=== PATIENT | female | born 1955 | race African-American/Black ===

== ENCOUNTER 2016-04-26 15:19 | Emergency (ER) | payer OTHER ==
[~2016-04-26] VITALS: Ht 160 cm; Wt 77.0 kg
[~2016-04-26 15:19] MED LIST: ALPR0.5T99 PO; AMBI5TAB PO; EMPA1TAB PO; GABA300 PO; GLUCTAB PO; LISI-357 PO; LORTA5 PO; METO25 PO; NOVOLOGP2 SQ; PROT40TA PO; ZITH250T PO
[2016-04-26 15:21] VITALS: BP 191/86; PULSE 70; RESP 12; TEMP 97.9; O2SAT 97
--- NOTE | 2016-04-26 17:21 | PD ---
HPI Chief Complaint: GI Complaint Time Seen by Provider: 17:20 Travel History International Travel<30 days: No Contact w/Intl Traveler<30days: No Traveled to known affect area: No History of Present Illness HPI 60-year-old female with history of CAD with history of [place], diabetes, hypertension, COPD,, fibromyalgia, presents to emergency department for evaluation of epigastric pain. This has been ongoing for the last 5 days and radiates to her back. Denies any fever or chills. Has had a decreased appetite. Has been nauseous without vomiting. No other symptoms reported. PFSH Past Medical History Arthritis: Yes Asthma: No Blood Disorders: No Anxiety: Yes Heart Rhythm Problems: No Cancer: No Cardiac Catheterization: No Cardiovascular Problems: Yes High Cholesterol: Yes Chemotherapy: No Chest Pain: Yes Congestive Heart Failure: No Cirrhosis: Yes (PT DENIES) COPD: No Cerebrovascular Accident: Yes (TIA) Diabetes: Yes Diminished Hearing: No Endocrine: No Fibromyalgia: Yes GERD: Yes Glaucoma: No Genitourinary: No Headaches: Yes Hepatitis: No Hiatal Hernia: No Hypertension: Yes Immune Disorder: No Musculoskeletal: Yes (CHRONIC LOWER BACK PAIN) Neurologic: Yes (NEUROPATHY) Psychiatric: No Respiratory: Yes Immunizations Current: Yes Myocardial Infarction: No Radiation Therapy: No Sleep Apnea: No Thyroid Disease: No Menopausal: Yes : 3 Para: 3 Miscarriage: 0 : 0 Past Surgical History Abdominal Surgery: Yes (Hernia Repair) AICD: No Cardiac Surgery: No Coronary Artery Bypass Graft: No Ear Surgery: No Endocrine Surgery: Yes (TONSILECTOMY) Eye Surgery: No Genitourinary Surgery: No Gynecologic Surgery: Yes (RECTOCELE) Hysterectomy: Yes Joint Replacement: No Neurologic Surgery: No Oral Surgery: No Pacemaker: No Thoracic Surgery: No Tonsillectomy: Yes Other Surgery: Yes (CARPEL TUNNEL RELEASE RIGHT HAND, RECTOCELE REPAIR) Social History Alcohol Use: Yes (OCCASSIONAL) Tobacco Use: No (quit 30 yrs ago) Substance Use: No Allergies-Medications (Allergen,Severity, Reaction): Coded Allergies: No Known Allergies (Verified , 04/26/16) Reported Meds & Prescriptions Reported Meds & Active Scripts Active Zofran (Ondansetron HCl) 4 Mg Tab 4 Mg PO Q6HR PRN Sucralfate 1 Gm Tab 1 Gm PO QID PRN on empty stomach one hour before meal Review of Systems Except as stated in HPI: all other systems reviewed are Neg Physical Exam Narrative GENERAL: Well-nourished female patient, he was oriented no acute distress SKIN: Warm and dry. HEAD: Atraumatic. Normocephalic. EYES: Pupils equal and round. No scleral icterus. No injection or drainage. ENT: No nasal bleeding or discharge. Mucous membranes pink and moist. NECK: Trachea midline. No JVD. CARDIOVASCULAR: Regular rate and rhythm. No murmur appreciated. RESPIRATORY: No accessory muscle use. Clear to auscultation. Breath sounds equal bilaterally. GASTROINTESTINAL: Abdomen soft, epigastric tenderness to palpation. No guarding or rebound tenderness. Hepatic and splenic margins not palpable. MUSCULOSKELETAL: No obvious deformities. No clubbing. No cyanosis. No edema. NEUROLOGICAL: Awake and alert. No obvious cranial nerve deficits. Motor grossly within normal limits. Normal speech. PSYCHIATRIC: Appropriate mood and affect; insight and judgment normal. Data Data Last Documented VS Vital Signs Date Time Temp Pulse Resp B/P Pulse Ox O2 Delivery O2 Flow Rate FiO2 04/26/16 20:40 98.5 78 16 149/65 97 04/26/16 19:16 Room Air Orders Complete Blood Count With Diff (04/26/16 17:19) Comprehensive Metabolic Panel (04/26/16 17:19) Lipase (04/26/16 17:19) Prothrombin Time / Inr (Pt) (04/26/16 17:19) Act Partial Throm Time (Ptt) (04/26/16 17:19) Urinalysis - C+S If Indicated (04/26/16 17:19) Type And Screen (04/26/16 17:19) Troponin I (04/26/16 17:19) Ckmb (Isoenzyme) Profile (04/26/16 17:19) Electrocardiogram (04/26/16 18:44) D-Dimer (04/26/16 18:44) Chest, Single Ap (04/26/16 18:44) Abdomen, Flat & Upright (04/26/16 ) Iv Access Insert/Monitor (04/26/16 18:44) Ecg Monitoring (04/26/16 18:44) Ondansetron Inj (Zofran Inj) (04/26/16 18:45) Pantoprazole Inj (Protonix Inj) (04/26/16 18:45) Sodium Chlor 0.9% 1000 Ml Inj (Ns 1000 M (04/26/16 18:44) Famotidine Inj (Pepcid Inj) (04/26/16 18:45) Ct Abd/Pel W Iv Contrast(Rout) (04/26/16 19:24) Potassium Chloride (Kcl) (04/26/16 19:45) Iohexol 350 Inj (Omnipaque 350 Inj) (04/26/16 20:02) Labs Laboratory Tests Test 04/26/16 04/26/16 17:35 18:00 Urine Color LIGHT-YELLOW Urine Turbidity CLEAR Urine pH 5.[address] [place] 1.045 Urine Protein NEG mg/dL Urine Glucose (UA) 1000 mg/dL Urine Ketones NEG mg/dL Urine Occult Blood NEG Urine Nitrite NEG Urine Bilirubin NEG Urine Urobilinogen LESS THAN 2.0 MG/DL Urine Leukocyte Esterase NEG Urine WBC LESS THAN 1 /hpf Urine Squamous Epithelial 1 /hpf Cells Urine Hyaline Casts 1 /lpf Urine Mucus FEW /lpf Microscopic Urinalysis Comment CULT NOT INDICATED White Blood Count 4.7 TH/MM3 Red Blood Count 5.19 MIL/MM3 Hemoglobin 15.2 GM/DL Hematocrit 45.8 % Mean Corpuscular Volume 88.3 FL Mean Corpuscular Hemoglobin 29.2 PG Mean Corpuscular Hemoglobin 33.1 % Concent Red Cell Distribution Width 12.8 % Platelet Count 214 TH/MM3 Mean Platelet Volume 9.3 FL Neutrophils (%) (Auto) 35.2 % Lymphocytes (%) (Auto) 51.3 % Monocytes (%) (Auto) 9.8 % Eosinophils (%) (Auto) 2.8 % Basophils (%) (Auto) 0.9 % Neutrophils # (Auto) 1.6 TH/MM3 Lymphocytes # (Auto) 2.4 TH/MM3 Monocytes # (Auto) 0.5 TH/MM3 Eosinophils # (Auto) 0.1 TH/MM3 Basophils # (Auto) 0.0 TH/MM3 CBC Comment DIFF FINAL Differential Comment Prothrombin Time 10.0 SEC Prothromb Time International 0.9 RATIO Ratio Activated Partial 24.5 SEC Thromboplast Time D-Dimer Quantitative (PE/DVT) 0.25 MG/L FEU Sodium Level 138 MEQ/L Potassium Level 3.4 MEQ/L Chloride Level 102 MEQ/L Carbon Dioxide Level 28.1 MEQ/L Anion Gap 8 MEQ/L Blood Urea Nitrogen 12 MG/DL Creatinine 0.87 MG/DL Estimat Glomerular Filtration 81 ML/MIN Rate Random Glucose 185 MG/DL Calcium Level 8.8 MG/DL Total Bilirubin 0.4 MG/DL Aspartate Amino Transf 19 U/L (AST/SGOT) Alanine Aminotransferase 44 U/L (ALT/SGPT) Alkaline Phosphatase 160 U/L Total Creatine Kinase 76 U/L Troponin I LESS THAN 0.02 NG/ML Total Protein 7.9 GM/DL Albumin 3.7 GM/DL Lipase 164 U/L Blood Type B POSITIVE Antibody Screen NEGATIVE Blood Bank Comment MDM Medical Decision Making Medical Screen Exam Complete: Yes Emergency Medical Condition: Yes Medical Record Reviewed: Yes Differential Diagnosis Gastritis versus gastric antritis versus GERD versus esophagitis versus pancreatitis Narrative Course 60 year-old female presents to emergency department for evaluation of epigastric pain. Workup is initiated in triage. Once a medical bed becomes available, patient will be transferred. Scripts Ondansetron (Zofran)4 Mg Tab4 Mg PO Q6HR PRN (NAUSEA OR VOMITING) #12 TAB Ref 0 Prov:Vijay Aiken MD 04/26/16 Sucralfate 1 Gm Tab1 Gm PO QID PRN (ABDOMINAL CRAMPING) #20 TAB Ref 0 on empty stomach one hour before meal Prov:Vijay Aiken MD 04/26/16 Condition: Stable Danitza Hall Apr 26, 2016 17:20
[2016-04-26 18:24] LABS: AUTOMATED NEUTROPHIL # 1.6 TH/MM3 (1.8-7.7); BASOPHIL % 0.9 % (0.0-2.0); EOSINOPHIL # 0.1 TH/MM3 (0-0.4); EOSINOPHIL % 2.8 % (0.0-4.0); HEMATOCRIT 45.8 % (35.0-46.0); HEMO FLAGS DIFF FINAL; LYMPH % 51.3 % (9.0-44.0); LYMPHOCYTE # 2.4 TH/MM3 (1.0-4.8); MEAN CELL VOLUME 88.3 FL (80.0-100.0); MEAN CORPUSCULAR HEMOGLOBIN 29.2 PG (27.0-34.0); MEAN CORPUSCULAR HGB CONC 33.1 % (32.0-36.0); MONO % 9.8 % (0.0-8.0); NEUT % 35.2 % (16.0-70.0); PLATELET COUNT 214 TH/MM3 (150-450); RED BLOOD COUNT 5.19 MIL/MM3 (4.00-5.30); RED CELL DISTRIBUTION WIDTH 12.8 % (11.6-17.2); WHITE BLOOD COUNT 4.7 TH/MM3 (4.0-11.0)
[2016-04-26 18:33] LABS: APTT (PATIENT) 24.5 SEC (24.3-30.1); INTERNATIONAL NORMALIZED RATIO 0.9 RATIO
[2016-04-26 18:34] LABS: BLOOD, URINE NEG (NEG); COMMENT (UR) CULT NOT INDICATED; CULTURE IF INDICATED CULT NOT INDICATED; GLUCOSE,URINE 1000 mg/dL (NEG); HYALINE CAST, URINE 1 /lpf (RARE); KETONE, URINE NEG (NEG); MUCUS URINE FEW /lpf (OCC); NITRITE,URINE NEG (NEG); SQUAMOUS EPITHELIAL CELL URINE 1 /hpf (0-5); URINE COLOR LIGHT-YELLOW (YELLW/STRAW)
[2016-04-26] MEDS ORDERED: SODIUM CHLOR 0.9% 1000 ML INJ 1,000 ML IV SCH (18:44)
[2016-04-26] MEDS ORDERED: FAMOTIDINE 20 MG/2 ML VIAL IV PUSH ONE (18:45)
[2016-04-26] MEDS ORDERED: ONDANSETRON HCL 4 MG/2 ML VIAL IVP ONE (18:45)
[2016-04-26] MEDS ORDERED: PANTOPRAZOLE SODIUM 40 MG VIAL IVP ONE (18:45)
[2016-04-26 18:46] LABS: ANION GAP 8 MEQ/L (5-15); AST (GOT) 19 U/L (15-37); BICARBONATE 28.1 MEQ/L (21.0-32.0); BLOOD UREA NITROGEN 12 MG/DL (7-18); CHLORIDE 102 MEQ/L (98-107); GLOMERULAR FILTRATION RATE 81 ML/MIN (>89); POTASSIUM 3.4 MEQ/L (3.5-5.1); SODIUM (NA) 138 MEQ/L (136-145)
--- NOTE | 2016-04-26 18:47 | PD ---
HPI Chief Complaint: GI Complaint Time Seen by Provider: 18:47 Travel History International Travel<30 days: No Contact w/Intl Traveler<30days: No Traveled to known affect area: No History of Present Illness HPI Patient is a 60-year-old female with a history of insulin-dependent diabetes with neuropathy, GERD, TIA, fibromyalgia with chief complaint of epigastric pain. Present for the last 5 days. It is sharp and radiates to her back. She reports nausea without vomiting. She endorses reduced appetite. She was using Pepto-Bismol which did not help and begin developing dark stools the next day. She has had mostly normal stools with occasional soft stool, no kari diarrhea. No hematochezia. She denies any distention. She has GERD and is compliant with her medications but states she is also been having heartburn and some midsternal chest tightness and burning. This is been fairly constant for the last 5 days as well. She states it gives her shortness of breath. She states she was somewhat dizzy for a few brief seconds the last few days but denies syncope. She denies dysuria but states she has a "overactive bladder "and is on medications for this from her provider but has to wear a diaper frequently regardless. She denies history of DVT or PE and no recent surgeries or long distance travel however does have some right calf pain last few days as well. Denies swelling or injury. Documented of note she had EGD and possibly approximately one year ago with a GI specialist, does not remember their name. PCP told her to come here due to her symptoms, Dr. August. [facility] Past Medical History Arthritis: Yes Asthma: No Blood Disorders: No Anxiety: Yes Heart Rhythm Problems: No Cancer: No Cardiac Catheterization: No Cardiovascular Problems: Yes High Cholesterol: Yes Chemotherapy: No Chest Pain: Yes Congestive Heart Failure: No Cirrhosis: Yes (PT DENIES) COPD: No Cerebrovascular Accident: Yes (TIA) Diabetes: Yes Patient Takes Glucophage: Yes (04/25/16) Diminished Hearing: No Endocrine: No Fibromyalgia: Yes GERD: Yes Glaucoma: No Genitourinary: No Headaches: Yes Hepatitis: No Hiatal Hernia: No Hypertension: Yes Immune Disorder: No Medical other: Yes (fibromalgia) Musculoskeletal: Yes (CHRONIC LOWER BACK PAIN) Neurologic: Yes (NEUROPATHY) Psychiatric: No Respiratory: Yes Immunizations Current: Yes Myocardial Infarction: No Radiation Therapy: No Sleep Apnea: No Thyroid Disease: No Tetanus Vaccination: Unknown Influenza Vaccination: Yes Menopausal: Yes : 3 Para: 3 Miscarriage: 0 : 0 Past Surgical History Abdominal Surgery: Yes (Hernia Repair) AICD: No Cardiac Surgery: No Coronary Artery Bypass Graft: No Ear Surgery: No Endocrine Surgery: Yes (TONSILECTOMY) Eye Surgery: No Genitourinary Surgery: No Gynecologic Surgery: Yes (RECTOCELE) Hysterectomy: Yes Joint Replacement: No Neurologic Surgery: No Oral Surgery: No Pacemaker: No Thoracic Surgery: No Tonsillectomy: Yes Other Surgery: Yes (CARPEL TUNNEL RELEASE RIGHT HAND, RECTOCELE REPAIR) Social History Alcohol Use: Yes (OCCASSIONAL) Tobacco Use: No (quit 30 yrs ago) Substance Use: No Allergies-Medications (Allergen,Severity, Reaction): Coded Allergies: No Known Allergies (Verified , 04/26/16) Reported Meds & Prescriptions Reported Meds & Active Scripts Active Zofran (Ondansetron HCl) 4 Mg Tab 4 Mg PO Q6HR PRN Sucralfate 1 Gm Tab 1 Gm PO QID PRN on empty stomach one hour before meal Review of Systems Except as stated in HPI: all other systems reviewed are Neg Physical Exam Narrative GENERAL: Well-developed and well-nourished adult female in no acute distress. SKIN: Warm and dry. Good turgor without tenting. HEAD: Normocephalic and atraumatic. EYES: PERRL bilaterally, 5mm. EOMI bilaterally. No injection or icterus present. No proptosis. Lids without edema or erythema. ENT: Buccal mucosa pink and moist. Oropharynx free of erythema, tonsillar hypertrophy, masses, swelling, asymmetry and exudates. Uvula midline and airway patent. NECK: Supple, no midline tenderness, crepitus or step-offs. Trachea midline, no JVD. No cervical or facial lymphadenopathy. CARDIOVASCULAR: Regular rate and rhythm without murmurs, rubs, clicks or gallops. Radial and posterior tibial pulses 2+ bilaterally. No pedal edema. Tenderness with palpation of the right However there is no warmth, edema, tenseness or discoloration. RESPIRATORY: Clear to auscultation bilaterally with symmetrical rise and fall, no distress or use of accessory muscles. GASTROINTESTINAL: Epigastric tenderness without rebound tenderness or guarding. Negative Alan sign. No distention or discoloration. Normal bowel sounds all 4 quadrants. No masses or organomegaly present. Rectal exam reveals normal rectal tone without fissures or masses. Small amount of dark stool is present. Hemoccult negative. MUSCULOSKELETAL: No gait disturbances. Patient freely moving all four extremities spontaneously. Extremities without clubbing, cyanosis, or edema. No obvious deformities. NEUROLOGIC: CN II-XII grossly intact. Awake and alert. Motor grossly within normal limits. Normal speech. PSYCHIATRIC: Appropriate mood and affect; insight and judgment normal. Data Data Last Documented VS Vital Signs Date Time Temp Pulse Resp B/P Pulse Ox O2 Delivery O2 Flow Rate FiO2 04/26/16 19:16 98.2 62 16 146/67 99 Room Air Orders Complete Blood Count With Diff (04/26/16 17:19) Comprehensive Metabolic Panel (04/26/16 17:19) Lipase (04/26/16 17:19) Prothrombin Time / Inr (Pt) (04/26/16 17:19) Act Partial Throm Time (Ptt) (04/26/16 17:19) Urinalysis - C+S If Indicated (04/26/16 17:19) Type And Screen (04/26/16 17:19) Troponin I (04/26/16 17:19) Ckmb (Isoenzyme) Profile (04/26/16 17:19) Electrocardiogram (04/26/16 18:44) D-Dimer (04/26/16 18:44) Chest, Single Ap (04/26/16 18:44) Abdomen, Flat & Upright (04/26/16 ) Iv Access Insert/Monitor (04/26/16 18:44) Ecg Monitoring (04/26/16 18:44) Ondansetron Inj (Zofran Inj) (04/26/16 18:45) Pantoprazole Inj (Protonix Inj) (04/26/16 18:45) Sodium Chlor 0.9% 1000 Ml Inj (Ns 1000 M (04/26/16 18:44) Famotidine Inj (Pepcid Inj) (04/26/16 18:45) Ct Abd/Pel W Iv Contrast(Rout) (04/26/16 19:24) Potassium Chloride (Kcl) (04/26/16 19:45) Iohexol 350 Inj (Omnipaque 350 Inj) (04/26/16 20:02) Labs Laboratory Tests Test 04/26/16 04/26/16 17:35 18:00 Urine Color LIGHT-YELLOW Urine Turbidity CLEAR Urine pH 5.0 Urine Specific [place] 1.045 Urine Protein NEG mg/dL Urine Glucose (UA) 1000 mg/dL Urine Ketones NEG mg/dL Urine Occult Blood NEG Urine Nitrite NEG Urine Bilirubin NEG Urine Urobilinogen LESS THAN 2.0 MG/DL Urine Leukocyte Esterase NEG Urine WBC LESS THAN 1 /hpf Urine Squamous Epithelial 1 /hpf Cells Urine Hyaline Casts 1 /lpf Urine Mucus FEW /lpf Microscopic Urinalysis Comment CULT NOT INDICATED White Blood Count 4.7 TH/MM3 Red Blood Count 5.19 MIL/MM3 Hemoglobin 15.2 GM/DL Hematocrit 45.8 % Mean Corpuscular Volume 88.3 FL Mean Corpuscular Hemoglobin 29.2 PG Mean Corpuscular Hemoglobin 33.1 % Concent Red Cell Distribution Width 12.8 % Platelet Count 214 TH/MM3 Mean Platelet Volume 9.3 FL Neutrophils (%) (Auto) 35.2 % Lymphocytes (%) (Auto) 51.3 % Monocytes (%) (Auto) 9.8 % Eosinophils (%) (Auto) 2.8 % Basophils (%) (Auto) 0.9 % Neutrophils # (Auto) 1.6 TH/MM3 Lymphocytes # (Auto) 2.4 TH/MM3 Monocytes # (Auto) 0.5 TH/MM3 Eosinophils # (Auto) 0.1 TH/MM3 Basophils # (Auto) 0.0 TH/MM3 CBC Comment DIFF FINAL Differential Comment Prothrombin Time 10.0 SEC Prothromb Time International 0.9 RATIO Ratio Activated Partial 24.5 SEC Thromboplast Time D-Dimer Quantitative (PE/DVT) 0.25 MG/L FEU Sodium Level 138 MEQ/L Potassium Level 3.4 MEQ/L Chloride Level 102 MEQ/L Carbon Dioxide Level 28.1 MEQ/L Anion Gap 8 MEQ/L Blood Urea Nitrogen 12 MG/DL Creatinine 0.87 MG/DL Estimat Glomerular Filtration 81 ML/MIN Rate Random Glucose 185 MG/DL Calcium Level 8.8 MG/DL Total Bilirubin 0.4 MG/DL Aspartate Amino Transf 19 U/L (AST/SGOT) Alanine Aminotransferase 44 U/L (ALT/SGPT) Alkaline Phosphatase 160 U/L Total Creatine Kinase 76 U/L Troponin I LESS THAN 0.02 NG/ML Total Protein 7.9 GM/DL Albumin 3.7 GM/DL Lipase 164 U/L Blood Type B POSITIVE Antibody Screen NEGATIVE Blood Bank Comment MDM Medical Decision Making Medical Screen Exam Complete: Yes Emergency Medical Condition: Yes Interpretation(s) Last 24 hours Impressions Chest X-Ray 04/26/16 1844 Signed Impressions: Service Date/Time: Tuesday, April 26, 2016 19:05 - CONCLUSION: No acute disease. Andi Guy MD FACR Abdomen X-Ray 04/26/16 0000 Signed Impressions: Service Date/Time: Tuesday, April 26, 2016 19:06 - CONCLUSION: No acute disease. Andi Guy MD FACR Laboratory Tests Test 04/26/16 04/26/16 17:35 18:00 Urine Color LIGHT-YELLOW (YELLW/STRAW) Urine Turbidity CLEAR (CLEAR) Urine pH 5.0 (5.0-8.5) Urine Specific [place] 1.045 (1.002-1.035) Urine Protein NEG mg/dL (NEG-TRACE) Urine Glucose (UA) 1000 mg/dL (NEG) Urine Ketones NEG mg/dL (NEG) Urine Occult Blood NEG (NEG) Urine Nitrite NEG (NEG) Urine Bilirubin NEG (NEG) Urine Urobilinogen LESS THAN 2.0 MG/DL (LESS THAN 2.0) Urine Leukocyte Esterase NEG (NEG) Urine WBC LESS THAN 1 /hpf (0-5) Urine Squamous Epithelial 1 /hpf (0-5) Cells Urine Hyaline Casts 1 /lpf (RARE) Urine Mucus FEW /lpf (OCC) Microscopic Urinalysis Comment CULT NOT INDICATED White Blood Count 4.7 TH/MM3 (4.0-11.0) Red Blood Count 5.19 MIL/MM3 (4.00-5.30) Hemoglobin 15.2 GM/DL (11.6-15.3) Hematocrit 45.8 % (35.0-46.0) Mean Corpuscular Volume 88.3 FL (80.0-100.0) Mean Corpuscular Hemoglobin 29.2 PG (27.0-34.0) Mean Corpuscular Hemoglobin 33.1 % Concent (32.0-36.0) Red Cell Distribution Width 12.8 % (11.6-17.2) Platelet Count 214 TH/MM3 (150-450) Mean Platelet Volume 9.3 FL (7.0-11.0) Neutrophils (%) (Auto) 35.2 % (16.0-70.0) Lymphocytes (%) (Auto) 51.3 % (9.0-44.0) Monocytes (%) (Auto) 9.8 % (0.0-8.0) Eosinophils (%) (Auto) 2.8 % (0.0-4.0) Basophils (%) (Auto) 0.9 % (0.0-2.0) Neutrophils # (Auto) 1.6 TH/MM3 (1.8-7.7) Lymphocytes # (Auto) 2.4 TH/MM3 (1.0-4.8) Monocytes # (Auto) 0.5 TH/MM3 (0-0.9) Eosinophils # (Auto) 0.1 TH/MM3 (0-0.4) Basophils # (Auto) 0.0 TH/MM3 (0-0.2) CBC Comment DIFF FINAL Differential Comment Prothrombin Time 10.0 SEC (9.8-11.6) Prothromb Time International 0.9 RATIO Ratio Activated Partial 24.5 SEC Thromboplast Time (24.3-30.1) D-Dimer Quantitative (PE/DVT) 0.25 MG/L FEU (0.00-0.50) Sodium Level 138 MEQ/L (136-145) Potassium Level 3.4 MEQ/L (3.5-5.1) Chloride Level 102 MEQ/L (98-107) Carbon Dioxide Level 28.1 MEQ/L (21.0-32.0) Anion Gap 8 MEQ/L (5-15) Blood Urea Nitrogen 12 MG/DL (7-18) Creatinine 0.87 MG/DL (0.50-1.00) Estimat Glomerular Filtration 81 ML/MIN (>89) Rate Random Glucose 185 MG/DL (74-106) Calcium Level 8.8 MG/DL (8.5-10.1) Total Bilirubin 0.4 MG/DL (0.2-1.0) Aspartate Amino Transf 19 U/L (15-37) (AST/SGOT) Alanine Aminotransferase 44 U/L (10-53) (ALT/SGPT) Alkaline Phosphatase 160 U/L (45-117) Total Creatine Kinase 76 U/L (26-192) Troponin I LESS THAN 0.02 NG/ML (0.02-0.05) Total Protein 7.9 GM/DL (6.4-8.2) Albumin 3.7 GM/DL (3.4-5.0) Lipase 164 U/L (73-393) Blood Type B POSITIVE Antibody Screen NEGATIVE Blood Bank Comment Differential Diagnosis Gastritis versus peptic ulcer disease versus pancreatitis versus cholecystitis versus ACS versus pneumonia versus PE versus AAA versus GI bleed versus pneumonia Narrative Course Is a 60-year-old female with history of insulin-dependent diabetes, GERD, TIA and fibromyalgia presenting with epigastric pain. States had nausea without vomiting. She is afebrile and nontoxic-appearing. No tachycardia or hypotension. She is smiling and laughing in the room and has multiple complaints which she seemed to think chronic other than the epigastric pain. She is having dark stool but this began today after using Pepto-Bismol. Hemoccult negative. Some epigastric pain without rebound or guarding. No distention. It was most likely represents gastritis and GERD. I was working with Dr. Aiken who also evaluated this patient and agrees as she has some calf tenderness and some chest discomfort he does not believe there is a dissection present or PE given the length of time since 7 present in the whole gestalt of the history and physical. EKG shows sinus bradycardia, rate of 56. Normal axis and intervals. The one PAC. No ST-T changes.. And pelvic films unremarkable. CBC shows H&H 15.2/45.8. INR 0.9. Metabolic panel shows potassium 3.4, replace with 20 mEq potassium chloride orally. Creatinine 0.7, glucose 185. AST, 14, ALT 44, ALP 160. Lipase 164. Urine shows specific gravity 1.045, some glucose and few mucus. D-dimer 0.25, excluding DVT. Patient was given 1 L normal saline bolus, Zofran and ranitidine which helped significantly. CT of the abdomen and pelvis with contrast shows minimal mesenteric adenitis which was seen on previous CT and unchanged, no other findings. As patient is feeling improved. Has stable vital signs and workup is essentially negative treat for gastritis with continuing her Protonix, sucralfate, to complete and Zofran. See discharge paperwork for further instructions. The plan was discussed with the patient who acknowledged their understanding and agreement. Reinforced the follow-up with primary care is critically important. Patient instructed on emergent conditions that should prompt return to ED.I discussed this patient with Dr. Aiken throughout their care. He has also evaluated this patient, helped formulate, and agrees with the assessment and plan. [facility] Point of Care Internal Pos. & Neg. Controls: Passed Fecal Specimen Occult Blood: Negative Diagnosis Primary Impression: Gastritis Qualified Code: K29.00 - Acute gastritis without hemorrhage, unspecified gastritis type Additional Impressions: Hypokalemia Elevated blood pressure reading Patient Instructions: Diet for Stomach Ulcers and Gastritis (ED), Gastritis (ED ), General Instructions Additional Instructions: Continue your home Protonix Take the medications as prescribed Discontinue Pepto-Bismol Recommend holding any anti-inflammatories(meloxicam, naproxen, ibuprofen, aspirin, Goody powder, etc) Recommend a bland diet until symptoms resolve, see attached handout Drink lots of fluids and stay well-hydrated Follow-up with your PCP in one to 2 days and to discuss elevated blood pressure Return to the ED for any acute worsening of symptoms Med/Other Pt SpecificInfo: Prescription(s) given Scripts Ondansetron (Zofran)4 Mg Tab4 Mg PO Q6HR PRN (NAUSEA OR VOMITING) #12 TAB Ref 0 Prov:Vijay Aiken MD 04/26/16 Sucralfate 1 Gm Tab1 Gm PO QID PRN (ABDOMINAL CRAMPING) #20 TAB Ref 0 on empty stomach one hour before meal Prov:Vijay Aiken MD 04/26/16 Disposition: 01 DISCHARGE HOME Condition: Stable Agustín Dasilva III Apr 26, 2016 18:47
[2016-04-26 18:50] LABS: ALKALINE PHOSPHATASE 160 U/L (45-117); ALT (GPT) 44 U/L (10-53); TOTAL BILIRUBIN ADULT 0.4 MG/DL (0.2-1.0)
[2016-04-26 18:55] LABS: CREATINE KINASE 76 U/L (26-192)
[2016-04-26 19:16] VITALS: BP 146/67; PULSE 62; RESP 16; TEMP 98.2; O2SAT 99
--- NOTE | 2016-04-26 19:21 | RADRPT ---
EXAM DATE/TIME: 04/26/2016 19:06 [facility] COMPARISON: No previous studies available for comparison. INDICATIONS : Abdomen pain and dark stool for the past few days. MEDICAL HISTORY : None. SURGICAL HISTORY : hernia repair. ENCOUNTER: Initial ACUITY: 3 days PAIN SCORE: 6/10 LOCATION: Bilateral abdomen. FINDINGS: Supine and upright views of the abdomen were performed. The abdominal bowel gas pattern is normal. No air fluid levels are seen. No abnormal masses, calcifications, or organomegaly is seen. The visu alized lower lungs are clear. No evidence of free intraperitoneal gas. The osseous structures are u nremarkable. CONCLUSION: No acute disease. Andi Guy MD FACR on April 26, 2016 at 19:19 Board Certified Radiologist. This report was verified electronically.
--- NOTE | 2016-04-26 19:22 | RADRPT ---
EXAM DATE/TIME: 04/26/2016 19:05 [facility] COMPARISON: CHEST SINGLE AP, January 08, 2016, 20:26. INDICATIONS : Chest pain and nausea for the past few days. MEDICAL HISTORY : Hypertension. Diabetes. SURGICAL HISTORY : None. ENCOUNTER: Initial ACUITY: 3 days PAIN SCORE: 6/10 LOCATION: Bilateral chest FINDINGS: A single view of the chest demonstrates the lungs to be symmetrically aerated without evidence of mas s, infiltrate or effusion. The cardiomediastinal contours are unremarkable. Osseous structures are intact. CONCLUSION: No acute disease. Andi Guy MD FACR on April 26, 2016 at 19:20 Board Certified Radiologist. This report was verified electronically.
--- NOTE | 2016-04-26 19:25 | PD ---
Data Data Last Documented VS Vital Signs Date Time Temp Pulse Resp B/P Pulse Ox O2 Delivery O2 Flow Rate FiO2 04/26/16 20:40 98.5 78 16 149/65 97 04/26/16 19:16 Room Air Orders Complete Blood Count With Diff (04/26/16 17:19) Comprehensive Metabolic Panel (04/26/16 17:19) Lipase (04/26/16 17:19) Prothrombin Time / Inr (Pt) (04/26/16 17:19) Act Partial Throm Time (Ptt) (04/26/16 17:19) Urinalysis - C+S If Indicated (04/26/16 17:19) Type And Screen (04/26/16 17:19) Troponin I (04/26/16 17:19) Ckmb (Isoenzyme) Profile (04/26/16 17:19) Electrocardiogram (04/26/16 18:44) D-Dimer (04/26/16 18:44) Chest, Single Ap (04/26/16 18:44) Abdomen, Flat & Upright (04/26/16 ) Iv Access Insert/Monitor (04/26/16 18:44) Ecg Monitoring (04/26/16 18:44) Ondansetron Inj (Zofran Inj) (04/26/16 18:45) Pantoprazole Inj (Protonix Inj) (04/26/16 18:45) Sodium Chlor 0.9% 1000 Ml Inj (Ns 1000 M (04/26/16 18:44) Famotidine Inj (Pepcid Inj) (04/26/16 18:45) Ct Abd/Pel W Iv Contrast(Rout) (04/26/16 19:24) Potassium Chloride (Kcl) (04/26/16 19:45) Iohexol 350 Inj (Omnipaque 350 Inj) (04/26/16 20:02) Labs Laboratory Tests Test 04/26/16 04/26/16 17:35 18:00 Urine Color LIGHT-YELLOW Urine Turbidity CLEAR Urine pH 5.0 Urine Specific [place] 1.045 Urine Protein NEG mg/dL Urine Glucose (UA) 1000 mg/dL Urine Ketones NEG mg/dL Urine Occult Blood NEG Urine Nitrite NEG Urine Bilirubin NEG Urine Urobilinogen LESS THAN 2.0 MG/DL Urine Leukocyte Esterase NEG Urine WBC LESS THAN 1 /hpf Urine Squamous Epithelial 1 /hpf Cells Urine Hyaline Casts 1 /lpf Urine Mucus FEW /lpf Microscopic Urinalysis Comment CULT NOT INDICATED White Blood Count 4.7 TH/MM3 Red Blood Count 5.19 MIL/MM3 Hemoglobin 15.2 GM/DL Hematocrit 45.8 % Mean Corpuscular Volume 88.3 FL Mean Corpuscular Hemoglobin 29.2 PG Mean Corpuscular Hemoglobin 33.1 % Concent Red Cell Distribution Width 12.8 % Platelet Count 214 TH/MM3 Mean Platelet Volume 9.3 FL Neutrophils (%) (Auto) 35.2 % Lymphocytes (%) (Auto) 51.3 % Monocytes (%) (Auto) 9.8 % Eosinophils (%) (Auto) 2.8 % Basophils (%) (Auto) 0.9 % Neutrophils # (Auto) 1.6 TH/MM3 Lymphocytes # (Auto) 2.4 TH/MM3 Monocytes # (Auto) 0.5 TH/MM3 Eosinophils # (Auto) 0.1 TH/MM3 Basophils # (Auto) 0.0 TH/MM3 CBC Comment DIFF FINAL Differential Comment Prothrombin Time 10.0 SEC Prothromb Time International 0.9 RATIO Ratio Activated Partial 24.5 SEC Thromboplast Time D-Dimer Quantitative (PE/DVT) 0.25 MG/L FEU Sodium Level 138 MEQ/L Potassium Level 3.4 MEQ/L Chloride Level 102 MEQ/L Carbon Dioxide Level 28.1 MEQ/L Anion Gap 8 MEQ/L Blood Urea Nitrogen 12 MG/DL Creatinine 0.87 MG/DL Estimat Glomerular Filtration 81 ML/MIN Rate Random Glucose 185 MG/DL Calcium Level 8.8 MG/DL Total Bilirubin 0.4 MG/DL Aspartate Amino Transf 19 U/L (AST/SGOT) Alanine Aminotransferase 44 U/L (ALT/SGPT) Alkaline Phosphatase 160 U/L Total Creatine Kinase 76 U/L Troponin I LESS THAN 0.02 NG/ML Total Protein 7.9 GM/DL Albumin 3.7 GM/DL Lipase 164 U/L Blood Type B POSITIVE Antibody Screen NEGATIVE Blood Bank Comment MDM Supervised Visit with [facility]A: Yes Narrative Course I, Dr. Aiken, have reviewed the advance practice practitioner's documentation and am in agreement, met with the patient face to face, made the diagnosis, and the medical decision making was done by me. *My assessment and Findings: Patient is a 60-year-old female presents today with epigastric pain and dark stools. Was sent by her primary care physician to evaluate for GI bleeding. Patient has been taking Pepto-Bismol which would explain her dark stools, Mr. Echeverria is sent fecal occult which is negative. Hemoglobin is within normal limits. D-dimer is negative as patient did have some mild shortness of breath. She appears well in no apparent distress. She is stable for discharge this time with outpatient workup. Scripts Ondansetron (Zofran)4 Mg Tab4 Mg PO Q6HR PRN (NAUSEA OR VOMITING) #12 TAB Ref 0 Prov:Vijay Aiken MD 04/26/16 Sucralfate 1 Gm Tab1 Gm PO QID PRN (ABDOMINAL CRAMPING) #20 TAB Ref 0 on empty stomach one hour before meal Prov:Vijay Aiken MD 04/26/16 Vijay Aiken MD Apr 26, 2016 19:25
[2016-04-26] MEDS ORDERED: POTASSIUM CHLORIDE 20 MEQ CONTROLLED RELEASE TAB PO ONE (19:45)
[2016-04-26] MEDS ORDERED: IOHEXOL 350 MG/ML 10 ML VIAL (for RAD DIAG) IV ONE (20:02)
--- NOTE | 2016-04-26 20:17 | RADRPT ---
EXAM DATE/TIME: 04/26/2016 19:56 [facility] COMPARISON: CT ABDOMEN & PELVIS W CONTRAST, March 08, 2014, 21:26. INDICATIONS : Epigastric pain radiating to back. IV CONTRAST: 97 cc Omnipaque 350 (iohexol) IV ORAL CONTRAST: No oral contrast ingested. RADIATION DOSE: 21.79 CTDIvol (mGy) MEDICAL HISTORY : Hypertension. Gastroesophageal reflux disease. Diabetes. SURGICAL HISTORY : Hysterectomy. Hernia repair. ENCOUNTER: Initial ACUITY: 3 days PAIN SCALE: 7/10 LOCATION: Upper chest TECHNIQUE: Volumetric scanning of the abdomen and pelvis was performed. Using automated exposure control and adjustment of the mA and/or kV according to patient size, radiation dose was kept as low as reasonably achievable to obtain optimal diagnostic quality images. FINDINGS: The lung bases are clear. There is no pericardial effusion. The liver is free of foca l defects. Spleen, pancreas, adrenals and kidneys are unremarkable. Gallbladder appears normal. There is no ascites or adenopathy appreciated. There is a small midline hernia containing only fat. The region of the cecum and terminal ileum appear unremarkable. There is a normal appearing appendix. In the pelvis, bladder and adnexal regions are unremarkable. I do not see evidence for free air. Minimal mesenteric lymph nodes are noted similar to what was described previously and unchanged. CONCLUSION: Stable CT scan of the abdomen. I do not see an etiology for the patient's abdominal pain. Andi Guy MD FACR on April 26, 2016 at 20:11 Board Certified Radiologist. This report was verified electronically.
[2016-04-26] MEDS ORDERED: SUCR1TAB PO ×2 (20:18→20:39)
[2016-04-26] MEDS ORDERED: ZOFR4TAB PO ×2 (20:18→20:39)
[2016-04-26 20:40] VITALS: BP 149/65; TEMP 98.5
--- NOTE | 2016-04-27 20:17 | EKG ---
Date Performed: 04/26/2016 Time Performed: 19:13:39 PTAGE: 60 years EKG: SINUS BRADYCARDIA WITH OCCASIONAL SUPRAVENTRICULAR PREMATURE COMPLEXES NONSPECIFIC T-WAVE A BNORMALITY BORDERLINE ECG PREVIOUS TRACING : 01/08/2016 19.28 Compared to the previous tracing, rate slower DOCTOR: Torrey Martin Interpretating Date/Time 04/27/2016 20:16:09
== END 2016-04-26 20:54 | disposition home or self-care (01) ==
LOC: NEPA 15:19
DX: K29.70 Gastritis, unspecified, without bleeding (principal); R11.0 Nausea; E87.6 Hypokalemia; R03.0 Elevated blood-pressure reading, without diagnosis of hypertension; E78.00 Pure hypercholesterolemia, unspecified; E11.9 Type 2 diabetes mellitus without complications; I10 Essential (primary) hypertension; J44.9 Chronic obstructive pulmonary disease, unspecified; R94.31 Abnormal electrocardiogram [ECG] [EKG]
CPT/HCPCS: 71010; 74020; 74177; 80053; 81001; 82550; 83690; 84484; 85025; 85379; 85610; 85730; 86850; 86900; 86901; 93005; 96361; 96374; 96375; 99284; C9113; J2405; J7030; Q9967

== ENCOUNTER 2017-03-30 14:09 | Emergency (ER) | payer OTHER ==
[~2017-03-30] VITALS: Ht 170.2 cm; Wt 75.0 kg
[~2017-03-30 14:09] MED LIST changes: -ALPR0.5T99 PO; -AMBI5TAB PO; -EMPA1TAB PO; -GABA300 PO; -GLUCTAB PO; -LISI-357 PO; -LORTA5 PO; -METO25 PO; -NOVOLOGP2 SQ; -PROT40TA PO; +SUCR1TAB PO; -ZITH250T PO; +ZOFR4TAB PO
[2017-03-30] MEDS ORDERED: IOHEXOL 350 MG/ML 10 ML VIAL (for RAD DIAG) IVCONTRAST ONE (14:10)
[2017-03-30 14:12] VITALS: BP 185/77; PULSE 65; RESP 20; TEMP 98; O2SAT 98
[2017-03-30] MEDS ORDERED: NOVOLOGP2 SQ (14:50)
[2017-03-30] MEDS ORDERED: REGL5TAB PO (14:50)
[2017-03-30] MEDS ORDERED: METO25TA3 PO (14:50)
[2017-03-30] MEDS ORDERED: EMPA1TAB PO (14:50)
[2017-03-30] MEDS ORDERED: ALPR.5 PO (14:50)
[2017-03-30] MEDS ORDERED: ATOR10TA15 PO (14:50)
[2017-03-30] MEDS ORDERED: METF1000 PO (14:50)
[2017-03-30] MEDS ORDERED: PANT20 PO (14:50)
[2017-03-30] MEDS ORDERED: HYDR-3583 PO (14:51)
[2017-03-30] MEDS ORDERED: SODIUM CHLOR 0.9% 1000 ML INJ 1,000 ML IV SCH (15:03)
[2017-03-30] MEDS ORDERED: SODIUM CHLORIDE 0.9% FLUSH 10 ML FLUSH IV FLUSH PRN (15:15)
[2017-03-30] MEDS ORDERED: ONDANSETRON HCL 4 MG/2 ML VIAL IVP ONE (15:15)
[2017-03-30 15:43] LABS: AUTOMATED NEUTROPHIL # 4.4 TH/MM3 (1.8-7.7); BASOPHIL # 0.1 TH/MM3 (0-0.2); BASOPHIL % 0.8 % (0.0-2.0); EOSINOPHIL # 0.1 TH/MM3 (0-0.4); HEMATOCRIT 44.2 % (35.0-46.0); LYMPH % 33.1 % (9.0-44.0); LYMPHOCYTE # 2.5 TH/MM3 (1.0-4.8); MEAN CELL VOLUME 91.2 FL (80.0-100.0); MEAN CORPUSCULAR HEMOGLOBIN 30.9 PG (27.0-34.0); MEAN CORPUSCULAR HGB CONC 33.9 % (32.0-36.0); MEAN PLATELET VOLUME 10.2 FL (7.0-11.0); MONO % 5.6 % (0.0-8.0); MONOCYTE # 0.4 TH/MM3 (0-0.9); NEUT % 58.5 % (16.0-70.0); PLATELET COUNT 229 TH/MM3 (150-450); RED BLOOD COUNT 4.85 MIL/MM3 (4.00-5.30); RED CELL DISTRIBUTION WIDTH 13.3 % (11.6-17.2); WHITE BLOOD COUNT 7.6 TH/MM3 (4.0-11.0)
--- NOTE | 2017-03-30 15:49 | PD ---
HPI Chief Complaint: Dizziness Time Seen by Provider: 14:38 Travel History International Travel<30 days: No Contact w/Intl Traveler<30days: No Traveled to known affect area: No History of Present Illness HPI 61 year old female presents to the emergency department for evaluation of nausea , vomiting and right sided epigastric pain that start this afternoon while she was at work. The symptoms are extremely mild in nature. She states she has felt weaker than usual for approximately a week now. Patient states she vomited once this afternoon. She states the emesis did not have any blood but presented as undigested food. Patient states she is diabetic and felt weak during this event. She thought her sugar was low. The sugar was 178 when she woke up this morning and we checked it here it was 200. Patient states after she vomited and felt weak she thought she needed to eat so she ate food on the way to the emergency department and felt better, she has not vomited since. Patient denies any fever, chills, diarrhea. Patient states she is has acid reflux severely that causes chest pain and shortness of breath and occasionally vomiting. She states the only thing that makes the pain associated with GERD feel better is her Reglan prescription. She denies any exacerbating factors. Patient is diabetic and has hypertension. PFSH Past Medical History Arthritis: Yes Asthma: No Blood Disorders: No Anxiety: Yes Heart Rhythm Problems: No Cancer: No Cardiac Catheterization: No Cardiovascular Problems: Yes High Cholesterol: Yes Chemotherapy: No Chest Pain: Yes Congestive Heart Failure: No Cirrhosis: Yes (PT DENIES) COPD: No Cerebrovascular Accident: Yes (TIA) Diabetes: Yes Patient Takes Glucophage: Yes Diminished Hearing: No Endocrine: No Fibromyalgia: Yes GERD: Yes Glaucoma: No Genitourinary: No Headaches: Yes Hepatitis: No Hiatal Hernia: No Hypertension: Yes Immune Disorder: No Medical other: Yes (fibromalgia) Musculoskeletal: Yes (CHRONIC LOWER BACK PAIN) Neurologic: Yes (NEUROPATHY) Psychiatric: No Respiratory: Yes Immunizations Current: Yes Myocardial Infarction: No Radiation Therapy: No Sleep Apnea: No Thyroid Disease: No Tetanus Vaccination: > 5 Years Influenza Vaccination: Yes Menopausal: Yes : 3 Para: 3 Miscarriage: 0 : 0 Past Surgical History Abdominal Surgery: Yes (Hernia Repair) AICD: No Cardiac Surgery: No Coronary Artery Bypass Graft: No Ear Surgery: No Endocrine Surgery: Yes (TONSILECTOMY) Eye Surgery: No Genitourinary Surgery: No Gynecologic Surgery: Yes (RECTOCELE) Hysterectomy: Yes Joint Replacement: No Neurologic Surgery: No Oral Surgery: No Pacemaker: No Thoracic Surgery: No Tonsillectomy: Yes Other Surgery: Yes (CARPEL TUNNEL RELEASE RIGHT HAND, RECTOCELE REPAIR) Social History Alcohol Use: Yes (OCCASSIONAL) Tobacco Use: No (quit 30 yrs ago) Substance Use: No Allergies-Medications (Allergen,Severity, Reaction): Coded Allergies: No Known Allergies (Verified Adverse Reaction, Unknown, 03/30/17) Reported Meds & Prescriptions Reported Meds & Active Scripts Active Zofran (Ondansetron HCl) 4 Mg Tab 4 Mg PO Q6HR PRN Reported Hydrocodone-Acetamin 10-325 mg (Hydrocodone/Acetaminophen) 10 Mg-325 Mg Tablet 7.5 Mg PO Atorvastatin (Atorvastatin Calcium) 10 Mg Tab 10 Mg PO HS Protonix (Pantoprazole Sodium) 20 Mg Tab 20 Mg PO DAILY Reglan (Metoclopramide HCl) 5 Mg Tab 5 Mg PO TIDAC Xanax (Alprazolam) 0.5 Mg Tab 0.5 Mg PO Q6H PRN Novolog Inj (Insulin Aspart) 1,000 Unit/10 Ml Vial 0 SQ DIRECTED Sliding Scale as directed. Metoprolol Tartrate 25 Mg Tab 25 Mg PO BID Metformin (Metformin HCl) 1,000 Mg Tab 1,000 Mg PO BIDPC Jardiance (Empagliflozin) 10 Mg Tab 10 Mg PO DAILY Review of Systems Except as stated in HPI: all other systems reviewed are Neg Physical Exam Narrative GENERAL: Well-nourished, well-developed 61-year-old female patient. She is resting comfortably in the stretcher and conversing. SKIN: Focused skin assessment warm/dry. HEAD: Normocephalic. Atraumatic EYES: No scleral icterus. No injection or drainage. EARS: Bilateral pinnae and external canals appear within normal limits. Bilateral tympanic membranes without erythema, dullness or perforation. THROAT: No mild tonsillar hypertrophy, No pharyngeal injection or exudates. Airway is patent. NECK: Supple, trachea midline. No JVD or lymphadenopathy. CARDIOVASCULAR: Regular rate and rhythm without murmurs, gallops, or rubs. RESPIRATORY: Breath sounds equal bilaterally. No accessory muscle use. GASTROINTESTINAL: Right upper epigastric tenderness to palpation. Abdomen soft and nondistended. MUSCULOSKELETAL: No cyanosis, or edema. BACK: Nontender without obvious deformity. No CVA tenderness. Data Data Last Documented VS Vital Signs Date Time Temp Pulse Resp B/P (MAP) Pulse Ox O2 Delivery O2 Flow Rate FiO2 03/30/17 14:42 66 18 98 Room Air 03/30/17 14:12 98.0 185/77 (113) Orders Orders Complete Blood Count With Diff (03/30/17 15:03) Comprehensive Metabolic Panel (03/30/17 15:03) Lipase (03/30/17 15:03) Prothrombin Time / Inr (Pt) (03/30/17 15:03) Act Partial Throm Time (Ptt) (03/30/17 15:03) Urinalysis - C+S If Indicated (03/30/17 15:03) Ct Abd/Pel W Iv Contrast(Rout) (03/30/17 15:03) Iv Access Insert/Monitor (03/30/17 15:03) Ecg Monitoring (03/30/17 15:03) Oximetry (03/30/17 15:03) Ondansetron Inj (Zofran Inj) (03/30/17 15:15) Sodium Chlor 0.9% 1000 Ml Inj (Ns 1000 M (03/30/17 15:03) Sodium Chloride 0.9% Flush (Ns Flush) (03/30/17 15:15) Electrocardiogram (03/30/17 15:03) Influenzae A/B Antigen (03/30/17 15:06) Iohexol 350 Inj (Omnipaque 350 Inj) (03/30/17 14:10) Labs Laboratory Tests Test 03/30/17 14:45 03/30/17 16:00 White Blood Count 7.6 TH/MM3 Red Blood Count 4.85 MIL/MM3 Hemoglobin 15.0 GM/DL Hematocrit 44.2 % Mean Corpuscular Volume 91.2 FL Mean Corpuscular Hemoglobin 30.9 PG Mean Corpuscular Hemoglobin Concent 33.9 % Red Cell Distribution Width 13.3 % Platelet Count 229 TH/MM3 Mean Platelet Volume 10.2 FL Neutrophils (%) (Auto) 58.5 % Lymphocytes (%) (Auto) 33.1 % Monocytes (%) (Auto) 5.6 % Eosinophils (%) (Auto) 2.0 % Basophils (%) (Auto) 0.8 % Neutrophils # (Auto) 4.4 TH/MM3 Lymphocytes # (Auto) 2.5 TH/MM3 Monocytes # (Auto) 0.4 TH/MM3 Eosinophils # (Auto) 0.1 TH/MM3 Basophils # (Auto) 0.1 TH/MM3 CBC Comment DIFF FINAL Differential Comment Prothrombin Time 9.6 SEC Prothromb Time International Ratio 0.9 RATIO Activated Partial Thromboplast Time 24.0 SEC Blood Urea Nitrogen 16 MG/DL Creatinine 1.02 MG/DL Random Glucose 198 MG/DL Total Protein 7.6 GM/DL Albumin 4.1 GM/DL Calcium Level 8.9 MG/DL Alkaline Phosphatase 109 U/L Aspartate Amino Transf (AST/SGOT) 13 U/L Alanine Aminotransferase (ALT/SGPT) 24 U/L Total Bilirubin 0.5 MG/DL Sodium Level 142 MEQ/L Potassium Level 3.7 MEQ/L Chloride Level 106 MEQ/L Carbon Dioxide Level 28.1 MEQ/L Anion Gap 8 MEQ/L Estimat Glomerular Filtration Rate 67 ML/MIN Lipase 306 U/L Urine Color LIGHT-YELLOW Urine Turbidity CLEAR Urine pH 6.0 Urine Specific [place] 1.042 Urine Protein NEG mg/dL Urine Glucose (UA) 1000 mg/dL Urine Ketones NEG mg/dL Urine Occult Blood NEG Urine Nitrite NEG Urine Bilirubin NEG Urine Urobilinogen LESS THAN 2.0 MG/DL Urine Leukocyte Esterase NEG Urine RBC LESS THAN 1 /hpf Urine WBC LESS THAN 1 /hpf Urine Squamous Epithelial Cells <1 /hpf Microscopic Urinalysis Comment CULT NOT INDICATED MDM Medical Decision Making Medical Screen Exam Complete: Yes Emergency Medical Condition: Yes Differential Diagnosis Differential diagnoses include but not limited to electrolyte abnormality, GERD exacerbation, viral syndrome, gastroenteritis Narrative Course Patient placed on monitor, IV obtained, blood work sent to lab. CBC, CMP, lipase, PT/INR, UA, influenza ordered and pending. 1 L normal saline bolus given, 4 mg IV Zofran given. EKG ordered and pending. CBC shows no acute abnormalities. CMP shows mildly compromised renal function with creatinine 1.02 and GFR decreased at 67. Glucose is elevated at 198. Otherwise shows no acute abnormality. PT/INR shows no acute abnormality. Urinalysis shows no acute abnormality outside glucose in urine. Abdominal CT reflects a normal examination. Findings discussed with the patient. Patient is feeling better at this time. Nausea has resolved. Patient states she saw her primary care yesterday and her A1c used to be 11% and yesterday was 8%. Patient states she is compliant with her diabetic regimen. She is planning to follow with the primary care for a possible lime plant operator consult. Based on patient's symptoms, clinical presentation, lab results, radiological results, vital sign review and physical exam it is not necessary to admit the patient to the hospital or keep the patient in the emergency department for further evaluation. Patient will be discharged home with prescription for Zofran, instructions to keep a strict glucose log and follow up with her primary care regarding her medication regimen and lime plant operator consult. Diagnosis Primary Impression: Nausea & vomiting Qualified Codes: R11.2 - Nausea with vomiting, unspecified Additional Impression: Generalized weakness Referrals: Primary Care Physician Patient Instructions: Acute Nausea and Vomiting (ED), General Instructions, Weakness (ED) Additional Instructions: Please return to emergency department if your symptoms return or worsen. Follow up with your primary care provider. Keep glucose log daily to follow-up with her primary care. Take Zofran as directed as needed for nausea vomiting. The hydrated, get enough rest. Med/Other Pt SpecificInfo: Prescription(s) given Scripts Ondansetron Odt (Zofran Odt) 4 Mg Tab 4 MG SL Q6HR Y for Nausea/Vomiting, #10 TAB 0 Refills Prov: Radhika Vallejo 03/30/17 Disposition: 01 DISCHARGE HOME Condition: Stable Radhika Vallejo Mar 30, 2017 15:49
[2017-03-30 15:52] LABS: INTERNATIONAL NORMALIZED RATIO 0.9 RATIO; PROTHROMBIN TIME - PATIENT 9.6 SEC (9.8-11.6)
[2017-03-30 16:00] LABS: ALBUMIN 4.1 GM/DL (3.4-5.0); ALT (GPT) 24 U/L (10-53); AST (GOT) 13 U/L (15-37); BICARBONATE 28.1 MEQ/L (21.0-32.0); BLOOD UREA NITROGEN 16 MG/DL (7-18); CALCIUM 8.9 MG/DL (8.5-10.1); CHLORIDE 106 MEQ/L (98-107); CREATININE 1.02 MG/DL (0.50-1.00); GLOMERULAR FILTRATION RATE 67 ML/MIN (>89); GLUCOSE,RANDOM 198 MG/DL (74-106); LIPASE 306 U/L (73-393); SODIUM (NA) 142 MEQ/L (136-145)
[2017-03-30 16:01] LABS: ALKALINE PHOSPHATASE 109 U/L (45-117); TOTAL BILIRUBIN ADULT 0.5 MG/DL (0.2-1.0); TOTAL PROTEIN 7.6 GM/DL (6.4-8.2)
[2017-03-30 16:19] LABS: BILIRUBIN, URINE NEG (NEG); BLOOD, URINE NEG (NEG); GLUCOSE,URINE 1000 mg/dL (NEG); KETONE, URINE NEG (NEG); NITRITE,URINE NEG (NEG); SQUAMOUS EPITHELIAL CELL URINE <1 /hpf (0-5); URINE COLOR LIGHT-YELLOW (YELLW/STRAW); URINE LEUKOCYTE ESTERASE NEG (NEG)
--- NOTE | 2017-03-30 16:49 | RADRPT ---
EXAM DATE/TIME: 03/30/2017 16:33 [facility] COMPARISON: CT ABDOMEN & PELVIS W CONTRAST, April 26, 2016, 19:56. INDICATIONS : Patient complains of abdominal pain and weakness. IV CONTRAST: 100 cc Omnipaque 350 (iohexol) IV ORAL CONTRAST: No oral contrast ingested. RADIATION DOSE: 11.23 CTDIvol (mGy) MEDICAL HISTORY : Cardiovascular disease. Hypertension. Diabetes mellitus type 1.cirrohsis SURGICAL HISTORY : Hysterectomy. ENCOUNTER: Initial ACUITY: 1 week PAIN SCALE: 7/10 LOCATION: Right upper quadrant abdomen TECHNIQUE: Volumetric scanning of the abdomen and pelvis was performed. Using automated exposure control and ad justment of the mA and/or kV according to patient size, radiation dose was kept as low as reasonably achievable to obtain optimal diagnostic quality images. DICOM format image data is available electro nically for review and comparison. FINDINGS: LOWER LUNGS: The visualized lower lungs are clear. LIVER: Homogeneous density without lesion. There is no dilation of the biliary tree. No calcified gallston es. SPLEEN: Normal size without lesion. PANCREAS: Within normal limits. KIDNEYS: Normal in size and shape. There is no mass, stone or hydronephrosis. ADRENAL GLANDS: Within normal limits. VASCULAR: There is no aortic aneurysm. BOWEL/MESENTERY: The stomach, small bowel, and colon demonstrate no acute abnormality. There is no free intraperitone al air or fluid. ABDOMINAL WALL: Within normal limits. RETROPERITONEUM: There is no lymphadenopathy. BLADDER: No wall thickening or mass. REPRODUCTIVE: Within normal limits. INGUINAL: There is no lymphadenopathy or hernia. MUSCULOSKELETAL: Within normal limits for patient age. CONCLUSION: Normal examination. Normal-sized mesenteric lymph nodes are unchanged. No pathologic enlargement or mass is identified. The appendix is normal. Jah Lainez MD on March 30, 2017 at 16:46 Board Certified Radiologist. This report was verified electronically.
[2017-03-30] MEDS ORDERED: ZOFR4TAB3 SL (17:17)
[2017-03-30 17:50] VITALS: BP 175/79; PULSE 63; RESP 18; O2SAT 100
--- NOTE | 2017-03-31 23:11 | EKG ---
Date Performed: 03/30/2017 Time Performed: 16:19:14 PTAGE: 61 years EKG: SINUS BRADYCARDIA POSSIBLE ANTERIOR MYOCARDIAL INFARCTION NON-SPECIFIC ST/T WAVE CHANGES AB NORMAL ECG PREVIOUS TRACING : 04/26/2016 19.13 Compared to prior tracing no significant change DOCTOR: Rene Sawant Interpretating Date/Time 03/31/2017 23:09:34
== END 2017-03-30 17:57 | disposition home or self-care (01) ==
LOC: NEPC 14:09
DX: R11.2 Nausea with vomiting, unspecified (principal); R53.1 Weakness; R94.31 Abnormal electrocardiogram [ECG] [EKG]; R10.13 Epigastric pain; E11.9 Type 2 diabetes mellitus without complications; I10 Essential (primary) hypertension; G89.29 Other chronic pain; M54.5 Low back pain; K21.9 Gastro-esophageal reflux disease without esophagitis; R07.9 Chest pain, unspecified; R06.02 Shortness of breath
CPT/HCPCS: 74177; 80053; 81001; 83690; 85025; 85610; 85730; 87804; 93005; 96361; 96374; 99285; J2405; J7030; Q9967